=== PATIENT | male | born 2000 | race Caucasian/White ===

== ENCOUNTER 2021-03-16 01:12 | Emergency (ER) | payer OTHER ==
[2021-03-16 01:31] VITALS: BP 146/85; PULSE 68; RESP 16; TEMP 98.2
--- NOTE | 2021-03-16 02:10 | ED ---
Head Injury HPI - General Chief complaint: Head Injury Stated complaint: Fall, head lac Time Seen by Provider: 03/16/21 02:09 Source: patient, family, RN notes reviewed Mode of arrival: ambulatory Limitations: no limitations - History of Present Illness Initial comments: 21-year-old male presents emergency Department chief complaint of a head injury. Patient states she slipped on some ice and struck his head on a small pellet type step last house. There is no loss conscious. His tetanus is up-to-date. He did initially have some bleeding but has subsided essentially has no headache no blurred vision no focal weakness or nausea vomiting no abnormal behavior per significant other patient offers no other complaints. Denies any neck pain. - Related Data Allergies/Adverse reactions: Allergies Allergy/AdvReac Type Severity Reaction Status Date / Time No Known Allergies Allergy Verified 03/16/21 01:21 Review of Systems ROS Statement: Those systems with pertinent positive or pertinent negative responses have been documented in the HPI. ROS Other: All systems not noted in ROS Statement are negative. Past Medical History Past Medical History: No Reported History History of Any Multi-Drug Resistant Organisms: None Reported Past Surgical History: No Surgical Hx Reported Past Psychological History: No Psychological Hx Reported Smoking Status: Current every day smoker Past Alcohol Use History: Occasional Past Drug Use History: None Reported General Exam Limitations: no limitations General appearance: alert, in no apparent distress Head exam: Present: atraumatic, normocephalic. Absent: normal inspection, other (Approximated superficial laceration right parietal) Eye exam: Present: normal appearance, PERRL, EOMI. Absent: scleral icterus, conjunctival injection, periorbital swelling ENT exam: Present: normal exam, normal oropharynx, mucous membranes moist Neck exam: Present: normal inspection, full ROM. Absent: tenderness, meningismus, lymphadenopathy Respiratory exam: Present: normal lung sounds bilaterally. Absent: respiratory distress, wheezes, rales, rhonchi, stridor Cardiovascular Exam: Present: regular rate, normal rhythm, normal heart sounds. Absent: systolic murmur, diastolic murmur, rubs, gallop, clicks Neurological exam: Present: alert, oriented X3, CN II-XII intact, reflexes normal. Absent: motor sensory deficit Skin exam: Present: warm, dry, intact, normal color. Absent: rash Course Vital Signs 03/16/21 01:22 Temperature 98.2 F Pulse Rate 68 Respiratory 16 Rate Blood Pressure 146/85 O2 Sat by Pulse 96 Oximetry Medical Decision Making - Medical Decision Making Patient has no need for closure of his laceration. Patient has normal neuro exam we discussed return parameters including worsening symptoms for possible CT Disposition Clinical Impression: Scalp laceration, Contusion of scalp Disposition: HOME SELF-CARE Condition: Stable Instructions (If sedation given, give patient instructions): Head Injury (ED) Additional Instructions: Please return to the Emergency Department if symptoms worsen or any other concerns. Is patient prescribed a controlled substance at d/c from ED?: No Referrals: Ancelmo Upton MD [Primary Care Provider] - 1-2 days Time of Disposition: 02:10
== END 2021-03-16 02:16 | disposition home or self-care (01) ==
LOC: EC 01:12
DX: S01.01XA Laceration without foreign body of scalp, initial encounter (principal); F17.200 Nicotine dependence, unspecified, uncomplicated; W01.10XA Fall on same level from slipping, tripping and stumbling with subsequent striking against unspecified object, initial encounter
CPT/HCPCS: 99283